=== PATIENT | female | born 2000 | race Caucasian/White ===

== ENCOUNTER 2022-09-11 17:03 | Emergency (ER) | payer OTHER, SELFPAY ==
[2022-09-11 17:27] VITALS: BP 123/75; PULSE 64; RESP 16; TEMP 36.6; O2SAT 100
[2022-09-11 17:31] VITALS: BP 123/75; PULSE 64; RESP 16; TEMP 36.6; O2SAT 100
--- NOTE | 2022-09-11 17:49 | ED.NECK ---
HPI - Neck Pain/Injury General Chief Complaint: Neck Pain/Injury Stated Complaint: neck pain Time Seen by Provider: 09/11/22 17:18 Source: patient Mode of arrival: ambulatory Limitations: no limitations History of Present Illness HPI Narrative: 22-year-old female presents to [facility] complains of pain to right lateral neck trapezius region radiating down to right shoulder for the past 3 days. Patient reports that symptoms started after she was stretching her neck and then started with pain to the area. Patient has been taking [id number] ibuprofen and applying warm compress with minimal relief. Patient reports that the pain improves with rest and it worsens with movement. Patient denies fevers, headache, nausea or vomiting MD complaint: neck pain Onset (ago): day(s) (3) Place: home Radiation: right shoulder Severity: mild Duration: intermittent Relieving factors: remaining still Exacerbating factors: movement of neck Associated symptoms: none Treatments prior to arrival: ibuprofen Related Data Allergies Allergy/AdvReac Type Severity Reaction Status Date / Time No Known Allergies Allergy Verified 09/11/22 17:30 Review of Systems Constitutional: Constitutional: Denies chills, Denies fatigue, Denies fever(s) and Denies weakness ENT: Denies vertigo, Denies dizziness, Denies epistaxis and Denies nasal congestion Cardiovascular: Cardiovascular: Denies chest pain Respiratory: Respiratory: Denies cough, Denies dyspnea and Denies wheezing Gastrointestinal: Gastrointestinal: Denies diarrhea and Denies vomiting Musculoskeletal: Musculoskeletal: Denies back pain, Denies myalgias, Reports arthralgias, Denies joint swelling and Denies muscle cramps Comments: Right lateral neck pain radiating to right shoulder Integumentary/Breasts: Skin/Breast: Denies pruritus, Denies erythema, Denies rash and Denies skin ulcer Neurologic: Denies headache(s) PMFSH Comments At time of signature, I agree with nursing past medical, surgical, social and family history. There is no relevant family history pertinent to the presenting complaint. Exam Const: General: healthy appearing and no acute distress Nutritional Appearance: well nourished Orientation/consciousness: patient oriented x3 Limitations: no limitations HENMT: Head: normal to inspection Eyes: Conjunctivae: conjunctivae normal Neck: Neck: normal visual inspection, no lymphadenopathy and no meningeal signs Other: Pain noted to right trapezius region upon palpation. Full range of motion noted to neck but increased pain is noted with range of motion. There is no erythema, wounds, bruising or swelling noted. Resp: Effort & Inspection: normal respiratory effort and not labored Auscultation: clear to auscultation bilaterally, no crackles, no rales, no rhonchi and no wheezes Cardio: Rate: regular rate Rhythm: regular rhythm Heart sounds: no murmurs Skin: General skin exam: normal color Neuro: General: patient oriented x3 Psych: Affect: normal affect Attitude: cooperative Course Course Level of Care: [facility] Visit Vital Signs Vital signs: Vital Signs Temperature 36.6 C 09/11/22 17:27 Pulse Rate 64 09/11/22 17:27 Respiratory Rate 16 09/11/22 17:27 Blood Pressure 123/75 09/11/22 17:27 Pulse Oximetry 100 09/11/22 17:27 Oxygen Delivery Room Air 09/11/22 17:27 Temperature 36.6 C 09/11/22 17:31 Pulse Rate 64 09/11/22 17:31 Respiratory Rate 16 09/11/22 17:31 Blood Pressure 123/75 09/11/22 17:31 Pulse Oximetry 100 09/11/22 17:31 Oxygen Delivery Room Air 09/11/22 17:31 MDM - Neck Pain/Injury MDM Narrative Medical decision making narrative: Encouraged patient to continue applying warm compress area. Educated patient to take medications as prescribed. Informed patient to proceed to the emergency room if symptoms worsen Differential Diagnosis Differential diagnosis: Likely whiplash injury to neck, torticollis
== END 2022-09-11 18:08 | disposition home or self-care (01) ==
PROVIDERS: Emergency Provider Nurse Practitioner Family
DX: S16.1XXA Strain of muscle, fascia and tendon at neck level, initial encounter (principal); X50.9XXA Other and unspecified overexertion or strenuous movements or postures, initial encounter
CPT/HCPCS: 99203; G0463